=== PATIENT | male | born 1965 | race Caucasian/White ===

== ENCOUNTER 2021-02-21 12:34 | Outpatient (REF) | payer MEDICAID, SELFPAY ==
[2021-02-21 12:59] LABS: COVID-19 Test Negative (Negative)
== END 2021-02-21 12:35 | disposition home or self-care (01) ==
LOC: HO.LAB 12:34
PROVIDERS: Visit Provider Internal Medicine
DX: Z20.822 Contact with and (suspected) exposure to COVID-19 (principal)
CPT/HCPCS: 36415; 87635; C9803

== ENCOUNTER 2021-03-14 11:03 | Outpatient (REF) | payer MEDICAID, SELFPAY ==
[2021-03-14 11:58] LABS: COVID-19 Test Negative (Negative); IDNOW Serial# 55D5AD1C
== END 2021-03-14 11:04 | disposition home or self-care (01) ==
LOC: HO.LAB 11:03
PROVIDERS: Visit Provider Internal Medicine
DX: Z20.822 Contact with and (suspected) exposure to COVID-19 (principal)
CPT/HCPCS: 36415; 87635; C9803

== ENCOUNTER 2021-03-19 15:02 | Outpatient (REF) | payer MEDICAID, SELFPAY ==
--- NOTE | ~2021-03-19 | XR_ITS ---
EXAMINATION: XR CERVICAL SPINE CLINICAL INFORMATION: Cervicalgia. COMPARISON: None TECHNIQUE: 6 views of the cervical spine. FINDINGS: No abnormal prevertebral soft tissue swelling is seen. Disc space narrowing is seen at the C3-C4 and C5-C6 levels and to a lesser extent involving the C4-C5 and C6-C7 disc spaces. No fracture or significant subluxation is appreciated. There is minimal anterior neural foraminal narrowing on the right at the C3-C4 and C4-C5 levels as well as moderate encroachment at the C5-C6 level related to spurring of the joints of [place]. There is mild neural foraminal encroachment on the left at the C4-C5 level. XR/XR cervical spine 5V IMPRESSION: Cervical spondylosis as described above.
== END 2021-03-19 15:03 | disposition home or self-care (01) ==
LOC: HO.XRAY 15:02
PROVIDERS: PCP Internal Medicine; Visit Provider Internal Medicine
DX: M54.2 Cervicalgia (principal); R20.0 Anesthesia of skin
CPT/HCPCS: 72050

== ENCOUNTER 2021-03-25 20:52 | Emergency (ER) | payer MEDICAID, SELFPAY ==
--- NOTE | ~2021-03-25 | XR_ITS ---
EXAMINATION: XR FOOT, RIGHT CLINICAL INFORMATION: Pain. COMPARISON: None TECHNIQUE: AP, lateral, and oblique views of the right foot. FINDINGS: No acute osseous abnormality. There is no fracture dislocation. The small os navicularis, normal variant. Joint space is normal. No focal bone lesion or abnormal periosteal reaction. No soft tissue abnormality. XR/XR foot RT min 3V IMPRESSION: Normal right foot.
[2021-03-25 22:03] VITALS: BP 151/80; PULSE 71; RESP 20; TEMP 36.7; O2SAT 97; BMI 27.9
--- NOTE | 2021-03-25 23:06 | ED.LOWEXIN ---
HPI - Extremity Injury (Lower) General Chief Complaint: Extremity Injury, Lower Stated Complaint: foot injury Time Seen by Provider: 03/25/21 23:06 Source: patient Mode of arrival: ambulatory Limitations: no limitations History of Present Illness complaint: foot injury Onset (ago): hour(s) (at [facility]) Injury: Right: foot Type of Injury: unknown (likely planting hard) Place: other ([facility]) Severity: moderate Relieving factors: nothing Exacerbating factors: weight bearing, movement and palpation Context: other (likely push off during sparring) Associated symptoms: snap/pop sensation and swelling Other symptoms: none Related Data Previous Rx's Medication Instructions Recorded cyclobenzaprine 10 mg PO TID PRN #14 tab 03/25/21 ibuprofen 600 mg PO Q6H PRN #30 tab 03/25/21 Allergies Allergy/AdvReac Type Severity Reaction Status Date / Time No Known Allergies Allergy Verified 03/25/21 22:02 Review of Systems Review of Systems: Constitutional : No Fever, No Chills ENT/Mouth : No Ear Pain, No Hoarseness, No sore throat Eyes: No Eye Pain, No Swelling, No Redness, No Foreign Body Cardiovascular : No Chest Pain, No SOB Respiratory : No Cough, No Dyspnea Gastrointestinal : No Nausea, No Vomiting, No Diarrhea, No abdominal Pain Genitourinary : No Dysuria, No Hematuria Musculoskeletal : positive joint pain, No Myalgias, No Joint Swelling Skin : No Skin lacerations, No rash Neuro : No Weakness, No Numbness, No Loss of Consciousness, No Dizziness, No Headache PMFSH Past Medical History Attestation statement: The following information was validated with the patient. Medical History (Updated 03/25/21 @ 23:34 by Jennifer Suárez DO) Hypertension Plantar fasciitis Social History Social History (Updated 03/25/21 @ 23:17 by Jennifer Suárez DO) Smoking Status: Never smoker Advance Directives: No Advance Directives Information Provided: No Physical Exam Vital Signs: Vital Signs: Last Vital Signs Temp 98.1 F 03/25/21 22:03 Pulse 71 03/25/21 22:03 Resp 20 03/25/21 22:03 BP 151/80 H 03/25/21 22:03 Pulse Ox 97 03/25/21 22:03 Body Mass Index 27.9 Appearance: Alert. Oriented X3. No acute distress. Eyes: Pupils equal, round and reactive to light. ENT: Pharynx normal. Neck: Normal inspection. Neck supple. CVS: Pulses normal. Respiratory: No respiratory distress. Abdomen: Soft and nontender. Skin: Skin warm and dry. Normal skin color. Normal skin turgor. Extremities: No lower extremity edema. R foot NV intact, plantar surface ttp near calcaneal insertion with mild swelling noted, ttp Neuro: Oriented X 3. No motor deficit. No sensory deficit. Procedures Orthopedic Splinting/Casting Injury #1: Side: right Lower Extremity Injury Location: foot Lower Extremity Immobilizer: boot orthosis MDM - Extremity Injury (Lower) MDM Narrative Medical decision making narrative: 56 yo male here with HTN, plantar fasciitis pain and swelling over plantar fascia after injury at [facility] - at this time xray for avulsion noted, NSAIDs, walking boots. Discharge Plan Discharge Clinical Impression: Foot sprain Qualifiers: Encounter type: initial encounter Laterality: right Qualified Code(s): S93.601A - Unspecified sprain of right foot, initial encounter Patient Disposition: Home, Self-Care Instructions: Foot Sprain (ED), Plantar Fasciitis (ED) Additional Instructions: return to ED for any worsening symptoms or concerns wear boot for comfort x 1 week follow up with your doctor you may need physical therapy or MRI of your foot Prescriptions: New cyclobenzaprine 10 mg tablet 10 mg PO TID PRN (Reason: muscle spasm) Qty: 14 RF: 0 ibuprofen 600 mg tablet 600 mg PO Q6H PRN (Reason: pain) Qty: 30 RF: 0 Referrals: Frannie Mendoza MD [Primary Care Provider] - 2 days Stand Alone Forms: Work/School Release
== END 2021-03-26 00:41 | disposition home or self-care (01) ==
LOC: HO.ED 23:34
PROVIDERS: Emergency Provider Emergency Medicine; PCP Internal Medicine
DX: S93.601A Unspecified sprain of right foot, initial encounter (principal); X50.1XXA Overexertion from prolonged static or awkward postures, initial encounter; I10 Essential (primary) hypertension; Y93.71 Activity, boxing; Y92.39 Other specified sports and athletic area as the place of occurrence of the external cause; Y99.8 Other external cause status
CPT/HCPCS: 73630; 99283; 99284

== ENCOUNTER 2023-05-25 10:39 | Outpatient (REF) | payer MEDICAID, SELFPAY ==
[2023-05-25 14:50] LABS: MANUAL DIFF FLAG NO
[2023-05-25 14:58] LABS: Basophils Percent Auto 0.3 % (0-2); Eosinophils Absolute Auto 0.1 X10*3/uL (0.0-0.4); Eosinophils Percent Auto 2.2 % (0-4); Hematocrit 45.5 % (42.0-52.0); Hemoglobin 15.8 g/dl (14.0-18.0); Imm Gran Abs Auto 0.01 X10*3/uL (0.00-0.03); Imm Gran Pct Auto 0.2 % (0.0-0.4); Lymphocytes Absolute Auto 2.3 X10*3/uL (1.2-4.9); Lymphocytes Percent Auto 38.6 % (20-40); Mean Corpuscular HGB Conc 34.7 g/dl (31.0-36.0); Mean Corpuscular Hemoglobin 30.7 pg (27.0-33.0); Mean Corpuscular Volume 88.3 fL (80.0-98.0); Mean Platelet Volume 10.7 fL (9.4-12.4); Monocytes Absolute Auto 0.6 X10*3/uL (0.1-1.2); Monocytes Percent Auto 10.3 % (2-11); Neutrophils Absolute Auto 2.9 x10*3/uL (2.0-8.3); Neutrophils Percent Auto 48.4 % (45-73); Platelet Count 188 X10*3/uL (160-400); Red Blood Count 5.15 X10*6/uL (4.60-5.80); Red Cell Distribution Width 12.7 % (11.0-16.0); White Blood Count 5.9 X10*3/uL (4.8-10.8)
[2023-05-25 15:46] LABS: Prostate Specific Antigen 0.41 ng/mL (<0.05-4.0)
[2023-05-25 15:49] LABS: Alanine Aminotransferase 74 U/L (0-40); Albumin Level 4.7 g/dL (3.5-5.0); Alkaline Phosphatase 77 U/L (39-117); Anion Gap 15 (12-20); Aspartate Amino Transferase 56 U/L (5-37); Bilirubin Direct 0.2 mg/dL (0.0-0.5); Bilirubin Total 0.6 mg/dL (0.0-1.0); Blood Urea Nitrogen 15 mg/dL (9-16); Calcium 10.3 mg/dL (8.4-10.2); Carbon Dioxide 22 mmol/L (22-29); Chloride 107 mmol/L (96-108); Cholesterol 200 mg/dL; Estimated Glomerular Filt Rate > 60; Glucose Fasting 74 mg/dL (60-99); HDL Cholesterol 32 mg/dL; Potassium 3.4 mmol/L (3.3-5.1); Sodium 141 mmol/L (135-145); Total Protein 7.9 g/dL (6.5-8.0); Triglycerides 554 mg/dL
[2023-05-25 15:50] LABS: Thyroid Stimulating Hormone 0.57 uIU/mL (0.32-4.0)
== END 2023-05-25 10:40 | disposition home or self-care (01) ==
LOC: HO.CHCLDS 10:39
PROVIDERS: Visit Provider Internal Medicine
DX: Z12.5 Encounter for screening for malignant neoplasm of prostate (principal); E78.1 Pure hyperglyceridemia
CPT/HCPCS: 36415; 80048; 80061; 80076; 84153; 84443; 85025

== ENCOUNTER 2023-06-26 10:41 | Outpatient (REF) | payer MEDICAID, SELFPAY ==
--- NOTE | ~2023-06-26 | US_ITS ---
EXAMINATION: US ABDOMEN COMPLETE CLINICAL INFORMATION: Transaminitis. COMPARISON: Limited retroperitoneal ultrasound dated 06/02/2018. CT abdomen and pelvis with contrast dated 05/06/2018. Ultrasound abdomen complete dated 10/08/2017. KUB dated 05/10/2015. TECHNIQUE: Real-time imaging of the abdominal viscera. Limited visualization due to bowel gas and body habitus. FINDINGS: PANCREAS: Limited visualization. Imaged portion of pancreatic body appears heterogeneous. ABDOMINAL AORTA: Imaged portions of abdominal aorta are nonaneurysmal. Limited visualization. INFERIOR VENA CAVA: Visualized portions are normal. LIVER: Diffuse increase in echogenicity of the liver is characteristic of primary hepatocellular disease, possibly due to hepatic steatosis and severely limits visualization. GALLBLADDER: Surgically absent. COMMON BILE DUCT: Normal in caliber measuring 0.41 cm in diameter. RIGHT KIDNEY: No hydronephrosis. No renal calculi. Limited visualization. The kidney measures 10.7 cm in maximum dimension. LEFT KIDNEY: Left renal midpole 2.5 x 2.3 x 1.9 cm mildly complex cyst with thin septations. Ultrasound of 06/02/2018 demonstrated a left renal midpole simple cyst measuring 2.1 x 1.4 x 1.6 cm. No hydronephrosis. No renal calculi. Limited visualization. The kidney measures 12.1 cm in maximum dimension. SPLEEN: Normal. The spleen measures 11.3 cm in maximum dimension. FREE FLUID: None. US/US abdomen complete IMPRESSION: 1. Diffuse increase in echogenicity of the liver is characteristic of primary hepatocellular disease, possibly due to hepatic steatosis and severely limits visualization. 2. Gallbladder is surgically absent. 3. Left renal midpole 2.5 x 2.3 x 1.9 cm mildly complex cyst with thin septations. Ultrasound of 06/02/2018 demonstrated a left renal midpole simple cyst measuring 2.1 x 1.4 x 1.6 cm.
== END 2023-06-26 10:42 | disposition home or self-care (01) ==
LOC: HO.HMGCX 10:41
PROVIDERS: PCP Internal Medicine; Visit Provider Internal Medicine
DX: R74.01 Elevation of levels of liver transaminase levels (principal)
CPT/HCPCS: 76700

== ENCOUNTER 2024-01-12 16:31 | Outpatient (REF) | payer SELFPAY ==
[2024-01-12 18:26] LABS: Influenza A PCR NEGATIVE (Negative); Influenza B PCR NEGATIVE (Negative); Resp Syncy Virus RNA Qual PCR NEGATIVE (Negative); SARS COV2 PCR INHOUSE NEGATIVE (Negative)
== END 2024-01-12 16:32 | disposition home or self-care (01) ==
LOC: HO.CHCLNP 16:31
PROVIDERS: Visit Provider Internal Medicine
DX: R09.81 Nasal congestion (principal)
CPT/HCPCS: 0241U